=== PATIENT | male | born 2000 | race Caucasian/White ===

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

== ENCOUNTER 2022-05-27 16:32 | Emergency (ER) | payer OTHER, SELFPAY ==
[2022-05-27 16:34] VITALS: BP 140/66; PULSE 73; RESP 16; TEMP 37.2; O2SAT 99; BMI 23.0
--- NOTE | 2022-05-27 20:27 | ED_ITS ---
HPI - General Adult General Chief complaint: General Medical Stated complaint: med refill Time Seen by Provider: 05/27/22 19:38 Source: patient Mode of arrival: ambulatory Limitations: no limitations History of Present Illness HPI narrative: 21-year-old male presents to ED for medication refill of blood [id number] mg daily for anxiety. Patient states his previous primary care provider retired and his new primary care providerdoes not have appointment until June 17. Patient states new provided cleaning will not give him prescription for fluoxetine. Patient cindy Any suicidal homicidal ideation. patient denies any physical complaints. Related Data Previous Rx's Medication Instructions Recorded fluoxetine 10 mg capsule 10 mg PO DAILY 14 days #14 caps 05/27/22 Allergies Allergy/AdvReac Type Severity Reaction Status Date / Time No Known Allergies Allergy Verified 06/08/20 23:23 Review of Systems Review of Systems: medication refill Yes Unobtainable due to mental status PMFSH Past Medical History Medical History No known health problems Social History Social History Alcohol intake: never Advance Directives: No Advance Directives Information Provided: Yes Physical Exam ED Vital Signs: Vital Signs - 24 hr 05/27/22 16:34 Temperature 98.9 F Pulse Rate 73 Respiratory Rate 16 Blood Pressure 140/66 H Pulse Oximetry 99 Oxygen Delivery Method Room Air BMI result Body Mass Index 23.0 Const General: cooperative, healthy appearing, comfortable, no acute distress, well developed, alert, awake and Physically active Orientation/consciousness: oriented to person, oriented to place, oriented to time and patient oriented x3 HENMT Head: Yes normal to inspection, Yes No palpable skull fracture present, Yes normocephalic, Yes atraumatic and No abrasion Eyes General: appearance normal, both eyes and all related structures Neck Neck: Yes normal visual inspection, Yes full ROM, Yes no lymphadenopathy, Yes no meningeal signs, Yes trachea midline, Yes supple, No anterior neck swelling and No tender Chest Chest palpation & inspection: normal inspection of the chest and normal palpation of entire chest wall Resp Effort & Inspection: normal respiratory effort and able to speak in complete sentences Auscultation: clear to auscultation bilaterally Cardio Jugular venous distension: no JVD Heart sounds: S1 normal heart sound present and S2 normal heart sound present GI Inspection: Yes normal to inspection and No abdominal wall ecchymosis Palpation (GI): Soft to palpation, not firm, nontender, no guarding and not rigid General: No CVA tenderness and Yes no CVA tenderness Back/Spine/Pelvis Back: no CVA tenderness, No CVA tenderness and No back tenderness Skin General skin exam: no rashes or lesions noted and elasticity normal Neuro General: oriented to person, oriented to place, oriented to time, patient oriented x3, gait normal, tone normal, moves all extremities, no meningeal signs, no focal motor deficits, CN's II-XI intact bilaterally and deep tendon reflexes 2+ bilaterally Extrem General: Yes normal to inspection and Yes full ROM Psych Appearance: grossly normal, well kempt and not disheveled Course Course Course Narrative: Patient well-appearing Reevaluation(s) Reevaluation #1: Prescription sent for 14 days Time: 20:30 Medical Decision Making [facility] Narrative Medical decision making narrative: medication refill Discharge Plan Discharge Clinical Impression: Medication refill Patient Disposition: Home, Self-Care Instructions: Medicine Refill (ED) Additional Instructions: Return to the ED immediately for any suicidal/homicidal ideation, auditory/visual hallucinations, any physical complaints, or any other concerning symptoms. Please follow-up with primary care and therapist. Prescriptions: New fluoxetine 10 mg capsule 10 mg PO DAILY 14 Days Qty: 14 0RF Print Language: Telugu
== END 2022-05-27 20:51 | disposition home or self-care (01) ==
PROVIDERS: Emergency Provider Emergency Medicine; PCP Nurse Practitioner Family
DX: Z76.0 Encounter for issue of repeat prescription (principal)
CPT/HCPCS: 99281

== ENCOUNTER 2022-09-13 10:30 | Outpatient (REF) | payer OTHER, SELFPAY ==
[2022-09-13 11:36] LABS: MANUAL DIFF FLAG NO
[2022-09-13 11:44] LABS: Basophils Percent Auto 0.8 % (0-2); Eosinophils Absolute Auto 0.1 X10*3/uL (0.0-0.4); Eosinophils Percent Auto 3.6 % (0-4); Hematocrit 44.3 % (42.0-52.0); Hemoglobin 14.9 g/dl (14.0-18.0); Imm Gran Abs Auto 0.01 X10*3/uL (0.00-0.03); Imm Gran Pct Auto 0.3 % (0.0-0.4); Lymphocytes Absolute Auto 1.8 X10*3/uL (1.2-4.9); Lymphocytes Percent Auto 46.7 % (20-40); Mean Corpuscular HGB Conc 33.6 g/dl (31.0-36.0); Mean Corpuscular Volume 86.4 fL (80.0-98.0); Mean Platelet Volume 11.1 fL (9.4-12.4); Monocytes Absolute Auto 0.2 X10*3/uL (0.1-1.2); Monocytes Percent Auto 6.1 % (2-11); Neutrophils Absolute Auto 1.7 x10*3/uL (2.0-8.3); Neutrophils Percent Auto 42.5 % (45-73); Platelet Count 217 X10*3/uL (160-400); Red Blood Count 5.13 X10*6/uL (4.60-5.80); Red Cell Distribution Width 11.9 % (11.0-16.0); White Blood Count 3.9 X10*3/uL (4.8-10.8)
[2022-09-13 12:43] LABS: Alanine Aminotransferase 26 U/L (0-40); Albumin Level 4.7 g/dL (3.5-5.0); Alkaline Phosphatase 110 U/L (39-117); Anion Gap 12 (12-20); Aspartate Amino Transferase 23 U/L (5-37); Bilirubin Total 0.8 mg/dL (0.0-1.0); Blood Urea Nitrogen 16 mg/dL (9-16); Calcium 9.6 mg/dL (8.4-10.2); Carbon Dioxide 29 mmol/L (22-29); Chloride 104 mmol/L (96-108); Cholesterol 166 mg/dL; Estimated Glomerular Filt Rate > 60; Glucose Fasting 90 mg/dL (60-99); HDL Cholesterol 50 mg/dL; LDL Cholesterol Calculated 104 mg/dl; Potassium 4.2 mmol/L (3.3-5.1); Sodium 141 mmol/L (135-145); TSH reflex Free T4 1.24 uIU/mL (0.32-4.0); Total Protein 7.2 g/dL (6.5-8.0); Triglycerides 60 mg/dL
[2022-09-13 14:09] LABS: Appearance Urine Clear; Color Urine Yellow; Glucose Urine UA Negative (Negative); Leukocyte Esterase Urine Negative (Negative); Nitrite Urine Negative (Negative); Specific Gravity - Urine 1.015 (1.005-1.025); Urine Blood Negative (Negative); Urine Ketones Negative (Negative); Urine Protein Negative (Neg-Trace)
== END 2022-09-13 10:31 | disposition home or self-care (01) ==
LOC: HO.HMGCLDS 10:30
PROVIDERS: PCP Nurse Practitioner Family; Visit Provider Nurse Practitioner Family
DX: Z00.00 Encounter for general adult medical examination without abnormal findings (principal)
CPT/HCPCS: 36415; 80053; 80061; 81003; 84443; 85025

== ENCOUNTER 2023-01-03 09:34 | Outpatient (REF) | payer OTHER, SELFPAY ==
[2023-01-03 11:15] LABS: MANUAL DIFF FLAG NO
[2023-01-03 11:32] LABS: Basophils Percent Auto 0.5 % (0-2); Eosinophils Absolute Auto 0.1 X10*3/uL (0.0-0.4); Eosinophils Percent Auto 2.9 % (0-4); Hematocrit 44.8 % (42.0-52.0); Hemoglobin 14.8 g/dl (14.0-18.0); Lymphocytes Absolute Auto 1.7 X10*3/uL (1.2-4.9); Lymphocytes Percent Auto 44.3 % (20-40); Mean Corpuscular Hemoglobin 29.3 pg (27.0-33.0); Mean Corpuscular Volume 88.7 fL (80.0-98.0); Mean Platelet Volume 11.4 fL (9.4-12.4); Monocytes Absolute Auto 0.2 X10*3/uL (0.1-1.2); Monocytes Percent Auto 5.7 % (2-11); Neutrophils Absolute Auto 1.8 x10*3/uL (2.0-8.3); Neutrophils Percent Auto 46.6 % (45-73); Platelet Count 182 X10*3/uL (160-400); Red Blood Count 5.05 X10*6/uL (4.60-5.80); Red Cell Distribution Width 11.9 % (11.0-16.0); White Blood Count 3.8 X10*3/uL (4.8-10.8)
[2023-01-03 12:09] LABS: Alanine Aminotransferase 28 U/L (0-40); Albumin Level 4.7 g/dL (3.5-5.0); Alkaline Phosphatase 90 U/L (39-117); Anion Gap 10 (12-20); Aspartate Amino Transferase 24 U/L (5-37); Bilirubin Total 0.9 mg/dL (0.0-1.0); Blood Urea Nitrogen 18 mg/dL (9-16); Calcium 9.6 mg/dL (8.4-10.2); Carbon Dioxide 31 mmol/L (22-29); Chloride 103 mmol/L (96-108); Estimated Glomerular Filt Rate > 60; Glucose Random 92 mg/dL (60-115); Potassium 3.9 mmol/L (3.3-5.1); Sodium 140 mmol/L (135-145); Total Protein 7.4 g/dL (6.5-8.0)
== END 2023-01-03 09:35 | disposition home or self-care (01) ==
LOC: HO.HMGCLDS 09:34
PROVIDERS: PCP Nurse Practitioner Family; Visit Provider Nurse Practitioner Family
DX: F41.9 Anxiety disorder, unspecified (principal); D72.819 Decreased white blood cell count, unspecified
CPT/HCPCS: 36415; 80053; 85025

== ENCOUNTER → 2023-02-18 13:14 | Outpatient (BNV) | payer OTHER, SELFPAY | PROVIDERS: PCP Nurse Practitioner Family; Visit Provider Internal Medicine Medical Oncology | DX: D72.819 Decreased white blood cell count, unspecified (principal) | CPT/HCPCS: 99204 ==

== ENCOUNTER 2023-07-21 14:09 | Outpatient (AMB) | payer OTHER, SELFPAY ==
--- NOTE | 2023-07-21 14:18 | MHC.PC.OV ---
Vital Signs 07/21/23 14:20 Height 6 ft Weight 173 lb BMI 23.5 BP 120/70 Blood Pressure Location Rt brachial Position Sitting Pulse 61 Pulse Source Pulse Oximeter Pulse Oximetry (%) 99 Oxygen Delivery Method Room Air Intake Visit Reasons: 3 month follow up Anxiety Intake Note: Patient here for follow up on anxiety. Allergies No Known Allergies Allergy (Verified 07/21/23 14:21) Tobacco use date assessed: 10/11/22 HPI 3 month follow up Anxiety HPI Details Anxiety: Pt is currently taking fluoxetine 40mg. He reports doing well on this med overall. Will continue current med. Pt does not want a therapist currently. Denies any SI and HI. [facility] Medical History No known health problems Family History (Updated 02/18/23 @ 13:21 by Kacie Fink) Paternal Grandmother Cancer Social History (Updated 02/18/23 @ 13:22 by Kacie Fink) Housing: House Alcohol intake: never Patient Tobacco Use Status: Never used Tobacco e-Cigarette/Vaping Use: Never Used Second Hand Smoke Exposure: No service: No Current occupational status: employed Current occupation: [employer] Current occupational exposures/hazards: No Cognitive needs: No Hearing needs: No Vision needs: No Review of Systems Const Reports as per HPI Physical exam (Primary Care) Vital Signs: Last Vital Signs Pulse 61 07/21/23 14:20 BP 120/70 07/21/23 14:20 Pulse Ox 99 07/21/23 14:20 Oxygen Delivery Method Room Air 07/21/23 14:20 BMI result Body Mass Index 23.5 Tobacco/Smoking Status: Tobacco use Status Tobacco use date assessed 10/11/22 07/21/23 14:22 Patient Tobacco Use Status Never used Tobacco 07/21/23 14:22 e-Cigarette/Vaping Use Never Used 07/21/23 14:22 Const General: cooperative Orientation/consciousness: patient oriented x3 Chest Chest palpation & inspection: normal inspection of the chest Resp Effort & Inspection: normal respiratory effort Auscultation: clear to auscultation bilaterally Neuro General: patient oriented x3 Psych Appearance: grossly normal Mental Status: mental status grossly normal Speech and movement: Normal speech and movement present Affect: normal affect Attitude: cooperative Thought process: Normal thought process present Thought content: Normal thought content present Insight: Good insight present (Psych) Judgement: Good judgement present (Psych) Assessment and Plan Assessment & Plan (1) Anxiety disorder: Code(s): F41.9 - Anxiety disorder, unspecified Plan The patient agreed to the use of a medical imaging technologist for this encounter. Scribed for SCOTT Hopkins by Thais Mckeon medical imaging technologist, on 07/21/2023 at 14:25 EST. Coding Level of Care Code Est Pt Level 3 (66569) Diagnoses Anxiety disorder F41.9
[2023-07-21 14:20] VITALS: BP 120/70; PULSE 61; O2SAT 99; BMI 23.5
== END 2023-07-21 14:37 | disposition home or self-care (01) ==
PROVIDERS: PCP Nurse Practitioner Family; Visit Provider Nurse Practitioner Family
DX: F41.9 Anxiety disorder, unspecified (principal)
CPT/HCPCS: 99213

== ENCOUNTER 2023-10-12 15:15 | Outpatient (AMB) | payer OTHER, SELFPAY ==
--- NOTE | 2023-10-12 15:23 | MHC.OFFWIV ---
Intake Vital Signs 10/12/23 15:24 Height 6 ft Weight 173 lb 4 oz BMI 23.5 BP 112/70 Blood Pressure Location Rt brachial Position Sitting Pulse 84 Pulse Source Pulse Oximeter Temp 98.6 F Temp Source Temporal Artery Scan Pulse Oximetry (%) 99 Oxygen Delivery Method Room Air Intake Visit Reasons: EP Cough 3 months Intake Note: Pt is here c/o cough he has had for three months. Pt state he feels it has gotten worse. Patient Tobacco Use Status: Never used Tobacco Allergies No Known Allergies Allergy (Verified 10/12/23 15:27) Do you need a note to return to daycare/school/sports/work: Yes HPI HPI Comments History of Present Illness Details 23 y/o male patient who presents to the walk in clinic with c/o cough for 3 months. He had a cold back in July, that went away but the cough continued. He has not taken any OTC medicine for his symptoms. Denies fevers, chills, nausea or vomiting. [facility] Medical History No known health problems Family History (Updated 02/18/23 @ 13:21 by Kacie Fink) Paternal Grandmother Cancer Social History (Updated 02/18/23 @ 13:22 by Kacie Fink) Housing: House Alcohol intake: never Patient Tobacco Use Status: Never used Tobacco e-Cigarette/Vaping Use: Never Used Second Hand Smoke Exposure: No service: No Current occupational status: employed Current occupation: [employer] Current occupational exposures/hazards: No Cognitive needs: No Hearing needs: No Vision needs: No Review of Systems Const All systems reviewed & are unremarkable except as noted in HPI and below Physical Exam Vital Signs: Last Vital Signs Temp 98.6 F 10/12/23 15:24 Pulse 84 10/12/23 15:24 BP 112/70 10/12/23 15:24 Pulse Ox 99 10/12/23 15:24 Oxygen Delivery Method Room Air 10/12/23 15:24 BMI result Body Mass Index 23.5 Const General: comfortable and no acute distress Nutritional Appearance: thin Orientation/consciousness: patient oriented x3 HEENT Head: Yes normocephalic Ears: external ears normal and TM's normal bilaterally General nose exam: Normal nasal mucous membranes and turbinates present Face and sinus: Yes sinuses nontender Mouth: moist mucous membranes Throat: Yes posterior oropharynx normal Resp Effort & Inspection: normal respiratory effort and able to speak in complete sentences Auscultation: clear to auscultation bilaterally, no crackles, no rales, no rhonchi and no wheezes Cardio Rate: regular rate Rhythm: regular rhythm Neuro General: patient oriented x3, gait normal and no focal motor deficits Assessment & Plan Assessment & Plan (1) Cough in adult: Code(s): R05.9 - Cough, unspecified Plan: - Rest and hydrate well with warm fluids and honey - Acetaminophen for pain relief. - OTC cough remedies. Medications: New [id number] 5-10-100 mg/5 mL (Adult Robitussin Peak Cold M-S) 10 mL PO Q4H PRN 237 mL 0RF cold symptoms R05.9 - Cough, unspecified benzonatate 100 mg PO TID 30 caps 0RF R05.9 - Cough, unspecified Coding Level of Care Code Est Pt Level 3 (76236) Diagnoses Cough in adult R05.9 Time Spent (min) 15
[2023-10-12 15:24] VITALS: BP 112/70; PULSE 84; TEMP 37; O2SAT 99; BMI 23.5
== END 2023-10-12 16:09 | disposition home or self-care (01) ==
PROVIDERS: PCP Nurse Practitioner Family; Visit Provider Nurse Practitioner Family
DX: R05.9 Cough, unspecified (principal)
CPT/HCPCS: 99213

== ENCOUNTER 2024-02-28 07:09 | Outpatient (REF) | payer BC, SELFPAY ==
[2024-02-28 07:24] LABS: MANUAL DIFF FLAG NO
[2024-02-28 08:03] LABS: Eosinophils Absolute Auto 0.2 X10*3/uL (0.0-0.4); Eosinophils Percent Auto 4.1 % (0-4); Hematocrit 42.9 % (42.0-52.0); Hemoglobin 14.3 g/dl (14.0-18.0); Imm Gran Abs Auto 0.01 X10*3/uL (0.00-0.03); Imm Gran Pct Auto 0.2 % (0.0-0.4); Lymphocytes Absolute Auto 1.7 X10*3/uL (1.2-4.9); Lymphocytes Percent Auto 40.4 % (20-40); Mean Corpuscular HGB Conc 33.3 g/dl (31.0-36.0); Mean Corpuscular Hemoglobin 29.3 pg (27.0-33.0); Mean Corpuscular Volume 87.9 fL (80.0-98.0); Monocytes Absolute Auto 0.3 X10*3/uL (0.1-1.2); Monocytes Percent Auto 6.3 % (2-11); Platelet Count 173 X10*3/uL (160-400); Red Blood Count 4.88 X10*6/uL (4.60-5.80); Red Cell Distribution Width 11.8 % (11.0-16.0); White Blood Count 4.1 X10*3/uL (4.8-10.8)
[2024-02-28 08:40] LABS: Alanine Aminotransferase 19 U/L (0-40); Albumin Level 4.8 g/dL (3.5-5.0); Alkaline Phosphatase 80 U/L (39-117); Anion Gap 11 (12-20); Aspartate Amino Transferase 20 U/L (5-37); Bilirubin Total 0.6 mg/dL (0.0-1.0); Blood Urea Nitrogen 17 mg/dL (9-16); Calcium 9.9 mg/dL (8.4-10.2); Carbon Dioxide 29 mmol/L (22-29); Chloride 104 mmol/L (96-108); Cholesterol 161 mg/dL (<200); Estimated Glomerular Filt Rate > 60; Glucose Fasting 92 mg/dL (60-99); HDL Cholesterol 51 mg/dL (>40); LDL Cholesterol Calculated 97 mg/dL (<100); Potassium 3.9 mmol/L (3.3-5.1); Sodium 140 mmol/L (135-145); Total Protein 7.4 g/dL (6.5-8.0); Triglycerides 68 mg/dL (<150)
[2024-02-28 08:47] LABS: TSH reflex Free T4 1.91 uIU/mL (0.32-4.0)
[2024-02-28 08:48] LABS: Appearance Urine Clear; Color Urine Yellow; Glucose Urine UA Negative (Negative); Leukocyte Esterase Urine Negative (Negative); Nitrite Urine Negative (Negative); PH 5.5 (5.0-9.0); Specific Gravity - Urine 1.025 (1.005-1.025); Urine Blood Negative (Negative); Urine Ketones Negative (Negative); Urine Protein Negative (Neg-Trace)
== END 2024-02-28 07:10 | disposition home or self-care (01) ==
LOC: HO.LAB 07:09
PROVIDERS: PCP Nurse Practitioner Family; Visit Provider Nurse Practitioner Family
DX: Z00.00 Encounter for general adult medical examination without abnormal findings (principal)
CPT/HCPCS: 36415; 80053; 80061; 81003; 84443; 85025

== ENCOUNTER 2024-03-07 15:08 | Outpatient (AMB) | payer BC, SELFPAY ==
[2024-03-07 15:16] VITALS: BP 120/70; PULSE 66; O2SAT 98; BMI 23.5
--- NOTE | 2024-03-07 15:16 | A.OFFPC_ITS ---
Vital Signs 03/07/24 15:16 Height 6 ft Weight 173 lb BMI 23.5 BP 120/70 Blood Pressure Location Rt brachial Position Sitting Pulse 66 Pulse Source Pulse Oximeter Pulse Oximetry (%) 98 Intake Visit Reasons: Annual PE Intake Note: pt is here for annual exam Emergency Medical Technician/Driver Required: No Allergies No Known Allergies Allergy (Verified 03/07/24 15:16) Tobacco use date assessed: 03/07/24 Dental Screening Dental Screen Date: 03/07/24 Did you have a dental visit in the last 12 months?: Yes Did you have a dental problem in the last 6 months where you did not have access to dental care?: No Was dental information given to patient?: Patient has dentist HPI Annual PE HPI Details Pt is here for a PE. Labs were already performed. [facility] Medical History No known health problems Family History Paternal Grandmother Cancer Social History Housing: House Alcohol intake: never Patient Tobacco Use Status: Never used Tobacco e-Cigarette/Vaping Use: Never Used Second Hand Smoke Exposure: No service: No Current occupational status: employed Current occupation: [employer] Current occupational exposures/hazards: No Cognitive needs: No Hearing needs: No Vision needs: No Questionnaire PHQ-9 Over the last 2 weeks, how often have you been bothered by any of the following problems? 1. Little interest or pleasure in doing things: several days 2. Feeling down, depressed, or hopeless: several days 3. Trouble falling or staying asleep, or sleeping too much: not at all 4. Feeling tired or having little energy: several days 5. Poor appetite or overeating: not at all 6. Feeling bad about yourself - or that you are a failure or have let yourself or your family down: not at all 7. Trouble concentrating on things, such as reading the newspaper or watching television: not at all 8. Moving or speaking so slowly that other people could have noticed. Or the opposite - being so fidgety or restless that you have been moving around a lot more than usual: more than half the days 9. Thoughts that you would be better off or of hurting yourself in some way: not at all Total score: 5 Depression Screening Interpretation: Negative Depression Screening Done: Yes 08305 - PHQ-9 Billing: Yes Source: Developed by Drs. José Miguel Delgado, Deloris Mcelroy, Cameron Storm and colleagues, with an educational warren from [employer]. Thrive Questionnaire Date Thrive assessed: 03/07/24 I am a: Patient What is your living situation today?: I choose not to answer this question Within the past 12 months, did the food you bought not last and you didn't have the money to get more?: I choose not to answer this question Within the past 12 months, did you worry whether your food would run out before you got money to buy more?: I choose not to answer this question Do you have trouble paying for medicines?: No Do you have trouble getting transportation to medical appointments?: No Do you have trouble paying your heating and electricity bill?: I choose not to answer this question Do you have trouble taking care of your child, family member or friend?: I choose not to answer this question Do you have trouble with day-to-day activities such as bathing, preparing meals, shopping, managing finances, etc.?: No Are you currently unemployed and looking for a job?: No Are you interested in more education?: No Please select the resources that you would like help with: Housing/[facility] Currently or been in a relationship where the following occur: No concerns reported THRIVE Score: 0 AUDIT C Alcohol Use Questionnaire (AUDIT-C) 1. How often do you have a drink containing alcohol?: 2-4 times a month 2. How many drinks containing alcohol do you have on a typical day when you are drinking?: 1 or 2 3. How often do you have six or more drinks on one occasion?: Never Total Score: 2 Score Reviewed/Action Taken: Yes LAWRENCE-7 AMB Questionnaire LAWRENCE-7 Date LAWRENCE - 7 assessed: 03/07/24 Feeling nervous, anxious, or on edge: 3 = Nearly every day Not being able to stop or control worryin = More than half the days Worrying too much about different things: 3 = Nearly every day Trouble relaxin = Nearly every day Being so restless that it is hard to sit still: 3 = Nearly every day Becoming easily annoyed or irritable: 3 = Nearly every day Feeling afraid as if something awful might happen: 2 = More than half the days Total LAWRENCE-7 score (0-4 normal; 5-9 mild; 10-14 moderate; 15-21 severe): 19 Source: Developed by Drs. José Miguel Delgado, Deloris Mcelroy, Cameron Storm and colleagues, with an educational warren from [employer]. LAWRENCE-7 Assessment Billing LAWRENCE-7 Assessment Tool: LAWRENCE-7 Assessment 09007 (refuses therapist, denies any SI or HI, on fluoxetine) Review of Systems Const Denies chills and Denies fever(s) Eyes Denies blurry vision ENT Denies vertigo, Denies dizziness and Denies sore throat Card Denies chest pain at rest, Denies chest pain with activity, Denies diaphoresis, Denies dyspnea and Denies dyspnea on exertion Resp Denies cough, Denies dyspnea, Denies dyspnea on exertion and Denies wheezing GI Denies abdominal pain, Denies melena, Denies hematochezia, Denies constipation, Denies diarrhea and Denies loose stools Denies hematuria Musc Denies numbness and Denies tingling Skin/Breast Denies lesions Neuro Denies vertigo, Denies dizziness, Denies numbness and Denies tingling Psych Denies anxiety, Denies depression, Denies homicidal ideation, Denies suicidal ideation and Denies other (substance abuse) Aller/Immun Denies wheezing Physical exam (Primary Care) Vital Signs: Last Vital Signs Pulse 66 03/07/24 15:16 BP 120/70 03/07/24 15:16 Pulse Ox 98 03/07/24 15:16 BMI result Body Mass Index 23.5 Tobacco/Smoking Status: Tobacco use Status Tobacco use date assessed 03/07/24 03/07/24 15:19 Patient Tobacco Use Status Never used Tobacco 03/07/24 15:19 e-Cigarette/Vaping Use Never Used 03/07/24 15:19 PHQ-9: PHQ-9 Score PHQ-9: Total score 5 03/07/24 15:19 Depression Screening Interpretation: Negative Thrive Assessment: Date of Thrive Assessment Date Thrive assessed 03/07/24 03/07/24 15:19 Currently or been in a relationship where the following occur: No concerns reported Const General: cooperative Nutritional Appearance: well nourished Orientation/consciousness: patient oriented x3 HENMT Head: Yes normal to inspection, Yes normocephalic and Yes atraumatic Ears: TM's normal bilaterally Eyes General: appearance normal, both eyes and all related structures Alignment and Position: alignment normal and position normal Neck Neck: Yes normal visual inspection and Yes no lymphadenopathy Thyroid: Thyroid normal Resp Effort & Inspection: normal respiratory effort Auscultation: clear to auscultation bilaterally Cardio Rate: regular rate Rhythm: regular rhythm Heart sounds: S1 normal heart sound present, S2 normal heart sound present and no murmurs GI Palpation (GI): Soft to palpation and nontender Auscultation: normal bowel sounds Male General Exam: Yes normal external exam Penis: normal penis Scrotum: scrotum normal, testes descended bilaterally and no inguinal hernias Testes: no testicular mass Skin Rashes: no rashes Neuro General: patient oriented x3, moves all extremities, no focal motor deficits and deep tendon reflexes 2+ bilaterally Romberg Test: Negative Psych Appearance: grossly normal Mental Status: mental status grossly normal Speech and movement: Normal speech and movement present Affect: normal affect Attitude: cooperative Thought process: Normal thought process present Thought content: Normal thought content present Insight: Good insight present (Psych) Judgement: Good judgement present (Psych) Assessment and Plan Assessment & Plan (1) Physical exam: Code(s): Z00.00 - Encounter for general adult medical examination without abnormal findings Plan The patient agreed to the use of a medical records field technician for this encounter. Scribed for SCOTT Hopkins by toby Arriaga scribe, on 03/07/2024 at 15:25 EST. Coding Level of Care Code Est Pt Prev Care 18-39y(81892) Diagnoses Physical exam Z00.00 Additional Codes LAWRENCE-7 Assessment Billing - LAWRENCE-7 Assessment Tool: LAWRENCE-7 Assessment 50793 ([id number])
== END 2024-03-07 15:37 | disposition home or self-care (01) ==
PROVIDERS: PCP Nurse Practitioner Family; Visit Provider Nurse Practitioner Family
DX: Z00.00 Encounter for general adult medical examination without abnormal findings (principal)
CPT/HCPCS: 99395

== ENCOUNTER 2024-09-18 08:14 | Outpatient (AMB) | payer BC, SELFPAY ==
[2024-09-18 08:30] VITALS: BP 110/70; PULSE 71; RESP 14; TEMP 36.6; O2SAT 98; BMI 23.6
--- NOTE | 2024-09-18 08:30 | A.OFFPC_ITS ---
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 History of Present Illness The patient is a 23-year-old male presenting with anxiety. He reports that he is currently doing fairly well in managing his anxiety. This mental health condition has been previously diagnosed and treated, though specifics about prior interventions are not provided in this visit. He notes an upcoming change in his professional life; he is soon to start a new job, which has heightened his feelings of anxiety. However, he indicates that he is managing these feelings and does not report any current suicidal or homicidal ideation. His anxiety seems situational, with the prospect of a new job serving as a specific trigger. There is no mention of prior medical interventions, complications, or prior hospitalizations related to his anxiety. He denies any acute exacerbations requiring intervention up to the date of this visit. Social History - Employment: Plans to start a new job i n the near future. - Denies any substance use. Health Maintenance Review of Systems - Psychiatric: Reports anxiety related t o starting a new job. -denies any si or hi Physical Exam General: Cooperative, healthy appearing, comfortable, no acute distress and well developed Orientation: Patient oriented x3 Limitations: No limitations Head: Normal to inspection Ears: Hearing grossly normal bilaterally Nose: Normal external nose present Face and sinus: Normal facial exam Eyes: Appearance normal, both eyes and all related structures Neck: Normal visual inspection and Yes full ROM Respiratory: Normal respiratory effort and able to speak in complete sentences. Clear to auscultation bilaterally Cardiovascular: Regular rate and rhythm. S1 is clear GI: Normal to inspection. Soft to palpation and nontender Skin: No rashes or lesions noted Neuro: Patient oriented x3 Extremities: Normal to inspection Results Plan - We will continue to monitor the patien roberth's anxiety as he prepares to begin his new job. - Repeat some laboratory tests to ensure no underlying medical issues are contributing to his symptoms. - Encourage him to use relaxation techni ques and other non-pharmacological methods to manage anxiety. - No new medications are initiated at th is time. Patient was informed and verbally consented to the use of an ambient scribe for clinic note documentation during this visit. Discussion Notes I discussed with the patient the likely diagnosis of anxiety related to his upcoming job change. We reviewed management strategies, including the importance of managing this condition through lifestyle modifications such as relaxation techniques and stress reduction exercises. The patient understands the plan to repeat some laboratory tests to rule out any physiological contributors to his anxiety and affirms that he is not currently experiencing suicidal or homicidal thoughts. Patient Instructions - Use relaxation techniques to help virgilio ge anxiety. - Follow up for repeat laboratory tests as discussed. - Monitor signs and symptoms of worsenin g anxiety or any new concerns, and seek care if they arise. [facility] Medical History No known health problems Surgical History No pertinent past surgical history Family History Paternal Grandmother Cancer Social History Housing: House Alcohol intake: never Patient Tobacco Use Status: Never used Tobacco e-Cigarette/Vaping Use: Never Used Second Hand Smoke Exposure: No service: No Current occupational status: employed Current occupation: [id number] Current occupational exposures/hazards: No Cognitive needs: No Hearing needs: No Vision needs: No Questionnaire PHQ-9 Over the last 2 weeks, how often have you been bothered by any of the following problems? 1. Little interest or pleasure in doing things: several days 2. Feeling down, depressed, or hopeless: several days 3. Trouble falling or staying asleep, or sleeping too much: not at all 4. Feeling tired or having little energy: several days 5. Poor appetite or overeating: not at all 6. Feeling bad about yourself - or that you are a failure or have let yourself or your family down: not at all 7. Trouble concentrating on things, such as reading the newspaper or watching television: not at all 8. Moving or speaking so slowly that other people could have noticed. Or the opposite - being so fidgety or restless that you have been moving around a lot more than usual: not at all 9. Thoughts that you would be better off or of hurting yourself in some way: not at all Total score: 3 Depression Screening Interpretation: Negative Depression Screening Done: Yes 39001 - PHQ-9 Billing: Yes Source: Developed by Drs. José Miguel Delgado, Deloris Mcelroy, Cameron Storm and colleagues, with an educational warren from [employer]. Thrive Questionnaire Date Thrive assessed: 09/18/24 I am a: Patient What is your living situation today?: I choose not to answer this question Within the past 12 months, did the food you bought not last and you didn't have the money to get more?: I choose not to answer this question Within the past 12 months, did you worry whether your food would run out before you got money to buy more?: I choose not to answer this question Do you have trouble paying for medicines?: I choose not to answer this question Do you have trouble getting transportation to medical appointments?: No Do you have trouble paying your heating and electricity bill?: I choose not to answer this question Do you have trouble taking care of your child, family member or friend?: I choose not to answer this question Do you have trouble with day-to-day activities such as bathing, preparing meals, shopping, managing finances, etc.?: No Are you currently unemployed and looking for a job?: No Are you interested in more education?: No Please select the resources that you would like help with: None Currently or been in a relationship where the following occur: No concerns reported THRIVE Score: 0 AUDIT C Alcohol Use Questionnaire (AUDIT-C) 1. How often do you have a drink containing alcohol?: 2-4 times a month 2. How many drinks containing alcohol do you have on a typical day when you are drinking?: 1 or 2 3. How often do you have six or more drinks on one occasion?: Never Total Score: 2 Score Reviewed/Action Taken: Yes LAWRENCE-7 AMB Questionnaire LAWRENCE-7 Date LAWRENCE - 7 assessed: 09/18/24 Feeling nervous, anxious, or on edge: 1 = Several days Not being able to stop or control worryin = Several days Worrying too much about different things: 1 = Several days Trouble relaxin = Several days Being so restless that it is hard to sit still: 1 = Several days Becoming easily annoyed or irritable: 1 = Several days Feeling afraid as if something awful might happen: 1 = Several days Total LAWRENCE-7 score (0-4 normal; 5-9 mild; 10-14 moderate; 15-21 severe): 7 Source: Developed by Drs. José Miguel Delgado, Deloris Mcelroy, Cameron Storm and colleagues, with an educational warren from [employer]. LAWRENCE-7 Assessment Billing LAWRENCE-7 Assessment Tool: LAWRENCE-7 Assessment 04353 Physical exam (Primary Care) Vital Signs: Last Vital Signs Temp 97.9 F 09/18/24 08:30 Pulse 71 09/18/24 08:30 Resp 14 09/18/24 08:30 BP 110/70 09/18/24 08:30 Pulse Ox 98 09/18/24 08:30 BMI result Body Mass Index 23.6 Tobacco/Smoking Status: Tobacco use Status Tobacco use date assessed 09/18/24 09/18/24 08:32 Patient Tobacco Use Status Never used Tobacco 09/18/24 08:32 e-Cigarette/Vaping Use Never Used 09/18/24 08:32 PHQ-9: PHQ-9 Score PHQ-9: Total score 3 09/18/24 08:40 Depression Screening Interpretation: Negative Thrive Assessment: Date of Thrive Assessment Date Thrive assessed 09/18/24 09/18/24 08:32 Currently or been in a relationship where the following occur: No concerns reported Coding Level of Care Code Est Pt Level 3 (51297) Diagnoses Anxiety disorder F41.9 Additional Codes LAWRENCE-7 Assessment Billing - LAWRENCE-7 Assessment Tool: LAWRENCE-7 Assessment 42331 ([id number]) PHQ-9 - 82917 - PHQ-9 Billing: Yes ([id number]) Assessment & Plan Assessment & Plan (1) Anxiety disorder: Code(s): F41.9 - Anxiety disorder, unspecified Category: Medical Plan . Orders: Orders Complete Blood Count Auto Diff Today F41.9 - Anxiety disorder, unspecified Comprehensive [place]. Panel Fast Today F41.9 - Anxiety disorder, unspecified TSH reflex Free T4 Today F41.9 - Anxiety disorder, unspecified UA CC w/rflx Micro + Cult Today F41.9 - Anxiety disorder, unspecified Lipid Panel Today F41.9 - Anxiety disorder, unspecified
== END 2024-09-18 09:13 | disposition home or self-care (01) ==
PROVIDERS: PCP Nurse Practitioner Family; Visit Provider Nurse Practitioner Family
DX: F41.9 Anxiety disorder, unspecified (principal)

== ENCOUNTER → 2024-09-18 08:14 | Outpatient (BNVA) | payer BC, SELFPAY | PROVIDERS: PCP Nurse Practitioner Family; Visit Provider Nurse Practitioner Family | DX: F41.9 Anxiety disorder, unspecified (principal) | CPT/HCPCS: 96127 ==

== ENCOUNTER 2025-01-11 09:36 | Outpatient (REF) | payer BC, SELFPAY ==
[2025-01-11 10:18] LABS: Basophils Percent Auto 0.8 % (0-2); Eosinophils Absolute Auto 0.1 X10*3/uL (0.0-0.4); Eosinophils Percent Auto 2.4 % (0-4); Hemoglobin 15.1 g/dl (14.0-18.0); Lymphocytes Absolute Auto 1.8 X10*3/uL (1.2-4.9); Lymphocytes Percent Auto 48.1 % (20-40); MANUAL DIFF FLAG SCAN; Mean Corpuscular HGB Conc 33.6 g/dl (31.0-36.0); Mean Corpuscular Hemoglobin 29.1 pg (27.0-33.0); Mean Corpuscular Volume 86.7 fL (80.0-98.0); Mean Platelet Volume 10.6 fL (9.4-12.4); Monocytes Absolute Auto 0.2 X10*3/uL (0.1-1.2); Monocytes Percent Auto 6.4 % (2-11); Neutrophils Absolute Auto 1.6 x10*3/uL (2.0-8.3); Neutrophils Percent Auto 42.3 % (45-73); Platelet Count 205 X10*3/uL (160-400); Red Blood Count 5.19 X10*6/uL (4.60-5.80); Red Cell Distribution Width 11.8 % (11.0-16.0); SCAN SMEAR FLAG 1; White Blood Count 3.7 X10*3/uL (4.8-10.8)
[2025-01-11 10:51] LABS: Albumin Level 5.1 g/dL (3.5-5.0); Alkaline Phosphatase 98 U/L (39-117); Anion Gap 9 (12-20); Aspartate Amino Transferase 27 U/L (5-37); Bilirubin Total 0.7 mg/dL (0.0-1.0); Blood Urea Nitrogen 14 mg/dL (9-16); Calcium 9.4 mg/dL (8.4-10.2); Carbon Dioxide 32 mmol/L (22-29); Chloride 104 mmol/L (96-108); Cholesterol 187 mg/dL (<200); Estimated Glomerular Filt Rate > 60; Glucose Fasting 92 mg/dL (60-99); HDL Cholesterol 48 mg/dL (>40); LDL Cholesterol Calculated 123 mg/dL (<100); Potassium 4.2 mmol/L (3.3-5.1); Sodium 141 mmol/L (135-145); Total Protein 7.5 g/dL (6.5-8.0); Triglycerides 81 mg/dL (<150)
[2025-01-11 10:59] LABS: SLIDE REVIEW VERIFIED
[2025-01-11 11:04] LABS: TSH reflex Free T4 2.06 uIU/mL (0.32-4.0)
[2025-01-11 11:10] LABS: Appearance Urine Clear; Color Urine Yellow; Glucose Urine UA Negative (Negative); Leukocyte Esterase Urine Negative (Negative); Nitrite Urine Negative (Negative); Specific Gravity - Urine 1.025 (1.005-1.025); Urine Blood Negative (Negative); Urine Ketones Trace mg/dL (Negative); Urine Protein Negative (Neg-Trace)
[2025-01-11 11:45] LABS: Alanine Aminotransferase 40 U/L (0-40)
== END 2025-01-11 09:37 | disposition home or self-care (01) ==
LOC: HO.LAB 09:36
PROVIDERS: PCP Nurse Practitioner Family; Visit Provider Nurse Practitioner Family
DX: F41.9 Anxiety disorder, unspecified (principal); Z13.6 Encounter for screening for cardiovascular disorders
CPT/HCPCS: 36415; 80053; 80061; 81003; 84443; 85025